=== PATIENT | female | born 1960 ===

== ENCOUNTER 2020-01-19 07:23 | Outpatient (CLI) | payer OTHER | END 2020-01-19 07:25 | disposition home or self-care (01) | LOC: RX STUDY 07:23 | PROVIDERS: ATTEND Internal Medicine Gastroenterology | DX: R13.19 Other dysphagia (principal) ==

== ENCOUNTER 2021-09-16 07:14 | Outpatient (CLI) | payer OTHER | END 2021-09-16 07:15 | disposition home or self-care (01) | LOC: RX STUDY 07:14 | PROVIDERS: ATTEND Internal Medicine Gastroenterology | DX: M54.2 Cervicalgia (principal); Z83.71 Family history of colonic polyps; R13.10 Dysphagia, unspecified ==